=== PATIENT | male | born 1980 | race Caucasian/White ===

== ENCOUNTER 2018-01-04 21:44 | Inpatient (IN) | payer MEDICAID ==
[~2018-01-04] VITALS: Ht 182.9 cm; Wt 99.8 kg
[2018-01-04 21:58] VITALS: BP_SYST 149
--- NOTE | 2018-01-04 21:58 | NUR ---
Patient triaged and placed in waiting room. VSS and patient appears in no acute distress at this time. Accompanied by family, awaiting available bed, and MD notified of need for MSE.
--- NOTE | 2018-01-04 22:30 | NUR ---
Patient to ER bed 8 for evaluation. Side rails up. Report given to Amelia DAVIS and Adrianna DAVIS.
--- NOTE | 2018-01-04 22:45 | NUR ---
Ultrasound at bedside.
--- NOTE | 2018-01-04 22:45 | NUR ---
Patient is complaining of L sided lower leg pain. Patient says he cannot put pressure on his left side because the pain is too much. Patient says that it has been painful for the last few weeks. Pain is 9/10. Patient says that he went jogging with his dog and hurt his left ankle a few years a back and thinks it can possibly be a DVT. Left leg is red and swollen. Patient says he has some SOB. Patient says he has been taking Ibuprofen to help with the pain. No prior medical history. No other injuries/complaints noted. Will continue to monitor.
[2018-01-04] MEDS ORDERED: KETOROLAC TROMETHAMINE 60 MG/2 ML VIAL IM ONE (23:00)
[2018-01-04 23:02] LABS: BASOPHILS % (AUTO) 0.7 % (0.0-2.0); EOSINOPHILS # (AUTO) 0.2 K/uL (0.0-0.4); EOSINOPHILS % (AUTO) 2.6 % (0.0-4.0); HEMOGLOBIN 14.7 g/dL (14.0-18.0); LYMPHOCYTES # (AUTO) 1.4 K/uL (1.0-5.5); LYMPHOCYTES % (AUTO) 20.1 % (20.5-51.5); MEAN CORPUSCULAR HEMOGLOBIN 27 pg (27-31); MEAN CORPUSCULAR HGB CONC 32 % (32-36); MEAN CORPUSCULAR VOLUME 84 fL (79.0-98.0); MONOCYTES # (AUTO) 0.7 K/uL (0.0-1.0); MONOCYTES % (AUTO) 9.9 % (1.7-9.3); NEUTROPHILS # (AUTO) 4.6 K/uL (1.8-7.7); NEUTROPHILS % (AUTO) 66.7 % (40.0-70.0); PLATELET COUNT (AUTO) 139 K/uL (130-430); RED BLOOD CELL COUNT(AUTO) 5.47 MIL/uL (4.2-6.2); RED CELL DISTRIBUTION WIDTH 13.9 % (9.0-15.0); WHITE BLOOD COUNT (AUTO) 6.9 K/uL (4.8-10.8)
--- NOTE | 2018-01-04 23:03 | NUR ---
Medicated with Toradol IM per MD order. Patient tolerated well. Will cont. to monitor.
[2018-01-04 23:12] LABS: CREATININE 1.53 mg/dL (0.55-1.30)
[2018-01-04 23:16] LABS: PROTHROMBIN TIME 10.2 SECS (9.5-12.5)
[2018-01-04 23:18] LABS: ALBUMIN 3.2 g/dL (3.4-4.8); TOTAL BILIRUBIN 0.2 mg/dL (0.0-1.0)
[2018-01-04] MEDS ORDERED: ENOXAPARIN SODIUM 100 MG/ML SYRINGE SUBCUT ONE (23:45)
[2018-01-04] MEDS ORDERED: NACL 0.9% 1,000 ML IV ONE (23:45)
--- NOTE | 2018-01-05 00:08 | NUR ---
Pt medicated with Heparin SQ and fluids per MD order. Patient tolerated well. Will cont. to monitor .
--- NOTE | 2018-01-05 00:44 | NUR ---
Patient will be admitted to care of Dr. Jaimes. Admitted to MED SURG unit. Will go to room . Belongings list completed. Summary report printed. Report will be given at bedside.
--- NOTE | 2018-01-05 01:08 | NUR ---
Note melody in EDM - 01/05/18 at 0109 by [email or web address] Pt medicated with Heparin SQ and fluids per MD order. Patient tolerated well. Will cont. to monitor .
--- NOTE | 2018-01-05 01:30 | NUR ---
Transfer to Med surg. Licensed nurse present. IV present no signs or symptoms of infiltration.
--- NOTE | 2018-01-05 01:30 | NUR ---
ADMISSION NOTE Received patient from ER via gurney. Patient admitted with diagnosis of DVT on left lower extremity. Patient oriented to hospital routine, call light, toileting and safety-patient verbalized understanding. Patient made aware that Oseas will be his nurse for the shift.
[2018-01-05 02:01] VITALS: BP_SYST 135
--- NOTE | 2018-01-05 02:11 | NUR ---
Consultation Called Reason for consultation: DVT Was consult called: Y Person who was notified: Greg Consulting Physician: William Holt [employer] Ordering Physician: Dr. Jaimes
--- NOTE | 2018-01-05 02:20 | NUR ---
OPENING NOTE Bedside report received from admit nurse. Patient received AOx4, lying in bed, no s/s of acute distress. Patient denies any pain at this time. Breathing is even and unlabored. Cap refill less than 3 seconds on left lower extremity, pedal pulse present on left lower extremity, patient able to wiggle toes on left lower extremity, patient able to feel sensation on left lower extremity. Call light with patient, instructed to call for any assistance, patient verbalized understanding. Bed alarm is off per patient's refusal despite being educated on its purpose and benefits, will continue to encourage throughout shift.
--- NOTE | 2018-01-05 04:02 | NUR ---
ROUNDS Patient in bed sleeping at this time. No s/s of acute distress noted. Chest rise and fall even bilaterally. Call light with patient. Will continue to monitor.
--- NOTE | 2018-01-05 05:57 | NUR ---
ROUNDS Patient sleeping comfortably at this time. No signs of discomfort noted. Chest rise and fall even bilaterally. Call light with patient. Will continue to monitor.
--- NOTE | 2018-01-05 07:15 | NUR ---
Opening Note patient resting in bed, eyes closed, breathing unlabored on room air, IV site saline locked, no signs of distress, safety precautions in place, bedside table and call light left within reach, will be back to check on patient
--- NOTE | 2018-01-05 07:34 | NUR ---
CLOSING NOTES Bedside report given to dayshift nurse. Patient in bed sleeping at this time. No s/s of acute distress noted. Breathing even and unlabored. IV site patent, no signs of infection or infiltration. Fall and safety precautions maintained throughout shift. All of patient's needs met throughout shift. Call light with patient.
[2018-01-05 07:57] VITALS: BP_SYST 134
[2018-01-05] MEDS: HYDROcodone/ACETAMIN 10-325 MG TAB PO PRN ×2 (07:59→14:25)
--- NOTE | 2018-01-05 08:03 | NUR ---
Jamir administered per pain scale protocol, educated patient regarding pain management, verbalized understanding, tolerated well by mouth, provided him with ice packs for ankle swelling and elevated leg, educated patient on use of call light for assistance, verbalized understanding, call light and bedside table left within reach, will be back to check on patient
[2018-01-05] MEDS ORDERED: *LOVENOX 1MG/KG Q12H/PHARMACY XX SCH (09:00)
[2018-01-05] MEDS ORDERED: ENOXAPARIN SODIUM 100 MG/ML SYRINGE SUBCUT ONE (11:30)
--- NOTE | 2018-01-05 11:56 | NUR ---
Lovenox administered per protocol, educated patient regarding med, verbalized understanding, tolerated well, no complaints of pain at this time, no other needs at this time, safety precautions in place, educated patient on use of call light for assistance, verbalized understanding, bedside table and call light left within reach, will continue to monitor
[2018-01-05 12:51] VITALS: BP_SYST 119
--- NOTE | 2018-01-05 13:18 | NUR ---
Dr. Morrell Rounds at this time, stated patient is okay to go home from a hematology standpoint, stated he will put patient on eliquis and talk to Dr. Jaimes, informed him Dr. Santiago is rounding at this time for Theodore, verbalized understanding
--- NOTE | 2018-01-05 13:29 | NUR ---
Dr. Santiago Rounds at this time, stated DC order depends on if patient can get blood thinner at home because he does not have insurance at this time, will await MD order
--- NOTE | 2018-01-05 14:27 | NUR ---
Pain Meds/Dr. Pamela Bowie given per pain scale protocol, educated patient regarding med, verbalized understanding, Dr. Santiago rounds again and stated will DC patient home with Rom and will order 1x dose today before he is discharged home, will await MD orders for discharge
--- NOTE | 2018-01-05 14:33 | NUR ---
Case mgt: Dr. Santiago indicates pt needs Eliquis 10 mg BID daily x7 days then 5 mg daily x 6 months-pt is [place] pay pending [facility] --First month's cost at [facility] on [address] is $406 then $232 per month after that. Pt indicates he can put that cost on his credit card and discussed with Dr. Santiago at bedside with cm present. [facility] ph#[phone]-open until 6:00pm tonight and they take their last RX at 5:45pm--Info given to pt. KEYSHA DAVIS
[2018-01-05] MEDS ORDERED: APIXABAN 2.5 MG TABLET PO ONE (15:00)
[2018-01-05 15:52] VITALS: BP_SYST 119
--- NOTE | 2018-01-05 16:10 | NUR ---
D/C Patient Patient given medication reconciliation form and D/C instructions. Exit Care provided. Patient verbalized understanding. MD discussed with patient the results and treatment provided. Ambulatory with steady gait for discharge to home. Patient in stable condition, ID band removed. IV catheter removed, intact and dressing applied, no active bleeding. Rx of Eliquis given. Patient educated on pain management. All belongings sent with patient.
[2018-01-05 16:52] VITALS: BP_SYST 132
[2018-01-05] MEDS ORDERED: APIXABAN 2.5 MG TABLET PO SCH (21:00)
[2018-01-05] MEDS ORDERED: ENOXAPARIN SODIUM 100 MG/ML SYRINGE SUBCUT SCH (21:00)
== END 2018-01-05 16:10 | disposition home or self-care (01) | DRG 197 ==
LOC: SED 21:44 → SMU 01-05 00:49
PROVIDERS: ADMIT Family Medicine; ATTEND Family Medicine
DX: I82.412 Acute embolism and thrombosis of left femoral vein (principal); I82.432 Acute embolism and thrombosis of left popliteal vein; I82.442 Acute embolism and thrombosis of left tibial vein; N28.9 Disorder of kidney and ureter, unspecified; S93.402A Sprain of unspecified ligament of left ankle, initial encounter; X58.XXXA Exposure to other specified factors, initial encounter; Z86.61 Personal history of infections of the central nervous system; Z84.89 Family history of other specified conditions; Y93.89 Activity, other specified; Y92.89 Other specified places as the place of occurrence of the external cause; Y99.8 Other external cause status
CPT/HCPCS: 36415; 80053; 85025; 85610-TC; 85730-TC; 93971; J1650; J1885; J7030

== ENCOUNTER 2018-01-15 22:40 | Emergency (ER) | payer MEDICAID ==
[~2018-01-15] VITALS: Ht 182.9 cm; Wt 102.1 kg
[2018-01-15 22:48] VITALS: BP_SYST 120
[2018-01-16] MEDS ORDERED: NACL 0.9% 1,000 ML IV ONE (00:39)
[2018-01-16] MEDS ORDERED: KETOROLAC TROMETHAMINE 60 MG/2 ML VIAL IM ONE (00:45)
[2018-01-16] MEDS ORDERED: MORPHINE 4 MG/ML INJ. SYRINGE IVP ONE (00:45)
[2018-01-16] MEDS ORDERED: ONDANSETRON HCL 4 MG/2 ML VIAL IVP ONE (00:45)
[2018-01-16 01:20] LABS: BILIRUBIN,URINE NEGATIVE (NEGATIVE); BLOOD, URINE NEGATIVE (NEGATIVE); CLARITY/URINE CLEAR (CLEAR); COLOR,URINE YELLOW (YELLOW); GLUCOSE,URINE NEGATIVE (NEGATIVE); KETONES,URINE NEGATIVE (NEGATIVE); LEUKOCYTE ESTERASE ,URINE NEGATIVE (NEGATIVE); NITRITE, URINE NEGATIVE (NEGATIVE); PH,URINE 5.5 (5.0-8.0); PROTEIN URINE NEGATIVE (NEGATIVE); UROBILINOGEN,URINE 0.2 (0.2-1.0)
[2018-01-16 01:39] LABS: CALCIUM 9.3 mg/dL (8.4-11.0); CREATININE 1.31 mg/dL (0.55-1.30); POTASSIUM 4.2 mmol/L (3.5-5.1)
[2018-01-16 01:45] LABS: INR 1.1 (0.80-1.20); PROTHROMBIN TIME 10.7 SECS (9.5-12.5)
[2018-01-16 01:48] LABS: BASOPHILS % (AUTO) 0.8 % (0.0-2.0); EOSINOPHILS # (AUTO) 0.2 K/uL (0.0-0.4); EOSINOPHILS % (AUTO) 2.7 % (0.0-4.0); HEMATOCRIT 46.3 % (36-54); HEMOGLOBIN 14.7 g/dL (14.0-18.0); LYMPHOCYTES # (AUTO) 1.8 K/uL (1.0-5.5); LYMPHOCYTES % (AUTO) 30.2 % (20.5-51.5); MEAN CORPUSCULAR HEMOGLOBIN 26 pg (27-31); MEAN CORPUSCULAR HGB CONC 32 % (32-36); MEAN CORPUSCULAR VOLUME 83 fL (79.0-98.0); MONOCYTES # (AUTO) 0.5 K/uL (0.0-1.0); MONOCYTES % (AUTO) 8.2 % (1.7-9.3); NEUTROPHILS # (AUTO) 3.5 K/uL (1.8-7.7); NEUTROPHILS % (AUTO) 58.1 % (40.0-70.0); PLATELET COUNT (AUTO) 212 K/uL (130-430); RED BLOOD CELL COUNT(AUTO) 5.59 MIL/uL (4.2-6.2); RED CELL DISTRIBUTION WIDTH 14.1 % (9.0-15.0)
[2018-01-16 01:52] LABS: ALBUMIN 3.6 g/dL (3.4-4.8); TOTAL BILIRUBIN 0.1 mg/dL (0.0-1.0)
[2018-01-16] MEDS ORDERED: ENOXAPARIN SODIUM 120 MG/0.8 ML SYRINGE SUBCUT SCH (02:00)
[2018-01-16 02:13] LABS: CKMB RELATIVE INDEX 0.7 (0.0-2.9); CREATINE KINASE MB 4.6 ng/mL (0-3.6)
[2018-01-16 02:40] VITALS: BP_SYST 131
== END 2018-01-16 02:40 | disposition home or self-care (01) ==
LOC: SED 22:40
DX: I82.492 Acute embolism and thrombosis of other specified deep vein of left lower extremity (principal); R03.0 Elevated blood-pressure reading, without diagnosis of hypertension
CPT/HCPCS: 36415; 71045; 80053; 81003; 82550; 82150; 82553; 83690; 84484; 85025; 85610; 85730; 93971; 96372; 96374; 96375; 99285; J1650; J2270; J2405; J7030

== ENCOUNTER 2018-03-10 02:48 | Emergency (ER) | payer MEDICAID ==
[~2018-03-10] VITALS: Ht 182.9 cm; Wt 96.2 kg
[2018-03-10 02:58] VITALS: BP_SYST 155
[2018-03-10 03:31] LABS: BILIRUBIN,URINE NEGATIVE (NEGATIVE); BLOOD, URINE 3+ (NEGATIVE); CLARITY/URINE CLEAR (CLEAR); COLOR,URINE YELLOW (YELLOW); GLUCOSE,URINE NEGATIVE (NEGATIVE); KETONES,URINE TRACE (NEGATIVE); LEUKOCYTE ESTERASE ,URINE NEGATIVE (NEGATIVE); NITRITE, URINE NEGATIVE (NEGATIVE); PROTEIN URINE NEGATIVE (NEGATIVE); UROBILINOGEN,URINE 0.2 (0.2-1.0)
[2018-03-10 03:33] LABS: BASOPHILS % (AUTO) 0.5 % (0.0-2.0); EOSINOPHILS # (AUTO) 0.2 K/uL (0.0-0.4); LYMPHOCYTES # (AUTO) 1.7 K/uL (1.0-5.5); LYMPHOCYTES % (AUTO) 24.1 % (20.5-51.5); MEAN CORPUSCULAR HEMOGLOBIN 29 pg (27-31); MEAN CORPUSCULAR HGB CONC 33 % (32-36); MEAN CORPUSCULAR VOLUME 89 fL (79.0-98.0); MONOCYTES # (AUTO) 0.9 K/uL (0.0-1.0); NEUTROPHILS # (AUTO) 4.4 K/uL (1.8-7.7); NEUTROPHILS % (AUTO) 60.4 % (40.0-70.0); PLATELET COUNT (AUTO) 254 K/uL (130-430); RED BLOOD CELL COUNT(AUTO) 4.83 MIL/uL (4.2-6.2); RED CELL DISTRIBUTION WIDTH 16.4 % (9.0-15.0); WHITE BLOOD COUNT (AUTO) 7.2 K/uL (4.8-10.8)
[2018-03-10 03:38] LABS: BACTERIA,URINE FEW /HPF (None Seen); RBC,URINE 50-80 /HPF (0-3)
[2018-03-10 03:49] LABS: CALCIUM 8.5 mg/dL (8.4-11.0); CREATININE 1.3 mg/dL (0.55-1.30); POTASSIUM 3.9 mmol/L (3.5-5.1)
[2018-03-10 03:57] LABS: ALBUMIN 3.5 g/dL (3.4-4.8); TOTAL BILIRUBIN 0.3 mg/dL (0.0-1.0)
[2018-03-10 04:20] LABS: PROTHROMBIN TIME 39.8 SECS (9.5-12.5)
[2018-03-10 04:21] LABS: INR 4.1 (0.80-1.20)
[2018-03-10 06:20] VITALS: BP_SYST 138
== END 2018-03-10 06:20 | disposition home or self-care (01) ==
LOC: SED 02:48
DX: R31.9 Hematuria, unspecified (principal); R79.1 Abnormal coagulation profile
CPT/HCPCS: 36415; 80053; 81000-TC; 83880; 84484; 85025; 85379; 85610-TC; 85730-TC; 99283

== ENCOUNTER 2018-03-28 22:39 | Emergency (ER) | payer MEDICAID ==
[~2018-03-28] VITALS: Ht 180.3 cm; Wt 102.1 kg
[2018-03-28 22:46] VITALS: BP_SYST 158
[2018-03-28 23:40] LABS: BASOPHILS # (AUTO) 0.1 K/uL (0.0-0.2); BASOPHILS % (AUTO) 0.8 % (0.0-2.0); EOSINOPHILS # (AUTO) 0.1 K/uL (0.0-0.4); EOSINOPHILS % (AUTO) 1.5 % (0.0-4.0); HEMATOCRIT 44.3 % (36-54); LYMPHOCYTES # (AUTO) 1.7 K/uL (1.0-5.5); LYMPHOCYTES % (AUTO) 23.9 % (20.5-51.5); MEAN CORPUSCULAR HEMOGLOBIN 30 pg (27-31); MEAN CORPUSCULAR HGB CONC 34 % (32-36); MEAN CORPUSCULAR VOLUME 87 fL (79.0-98.0); MONOCYTES # (AUTO) 0.6 K/uL (0.0-1.0); MONOCYTES % (AUTO) 7.8 % (1.7-9.3); NEUTROPHILS # (AUTO) 4.6 K/uL (1.8-7.7); PLATELET COUNT (AUTO) 197 K/uL (130-430); RED BLOOD CELL COUNT(AUTO) 5.07 MIL/uL (4.2-6.2); RED CELL DISTRIBUTION WIDTH 14.3 % (9.0-15.0); WHITE BLOOD COUNT (AUTO) 7.1 K/uL (4.8-10.8)
[2018-03-28 23:41] LABS: CALCIUM 9.2 mg/dL (8.4-11.0); CREATININE 1.17 mg/dL (0.55-1.30); POTASSIUM 3.8 mmol/L (3.5-5.1)
[2018-03-28 23:45] LABS: INR 1.8 (0.80-1.20); PROTHROMBIN TIME 18.4 SECS (9.5-12.5)
[2018-03-29 00:08] LABS: ALBUMIN 3.9 g/dL (3.4-4.8); TOTAL BILIRUBIN 0.2 mg/dL (0.0-1.0)
[2018-03-29 00:11] LABS: CKMB RELATIVE INDEX 0.5 (0.0-2.9); CREATINE KINASE MB 5.8 ng/mL (0-3.6)
[2018-03-29 01:15] VITALS: BP_SYST 142
== END 2018-03-29 01:15 | disposition home or self-care (01) ==
LOC: SED 22:39
DX: I82.492 Acute embolism and thrombosis of other specified deep vein of left lower extremity (principal); R03.0 Elevated blood-pressure reading, without diagnosis of hypertension
CPT/HCPCS: 36415; 80053; 82550-TC; 82553-TC; 83880; 84484; 85025; 85610-TC; 85730-TC; 93005; 99284